=== PATIENT | male | born 1990 | race Two or more races ===

== ENCOUNTER 2019-05-19 22:59 | Emergency (ER) | payer OTHER ==
[~2019-05-19] VITALS: Ht 188 cm; Wt 97.5 kg
[2019-05-20] MEDS ORDERED: fentaNYL CITRATE 100 MCG/2 ML VL IV ONE (01:30)
[2019-05-20] MEDS ORDERED: KETOROLAC TROMETH 15 mg/ml 1ML VL IV ONE (01:30)
[2019-05-20 01:58] VITALS: BP 136/81
== END 2019-05-20 02:02 ==
LOC: EEVIPCON 23:02 → ER 23:02
DX: S43.492A Other sprain of left shoulder joint, initial encounter (principal); X58.XXXA Exposure to other specified factors, initial encounter; Y93.B9 Activity, other involving muscle strengthening exercises; Y92.89 Other specified places as the place of occurrence of the external cause; Y99.8 Other external cause status
CPT/HCPCS: 73030; 96374; 96375; 99285; J1885; J3010

== ENCOUNTER 2019-10-28 00:39 | Emergency (ER) | payer OTHER ==
[~2019-10-28] VITALS: Ht 188 cm; Wt 97.5 kg
[2019-10-28 01:58] VITALS: BP 116/72
[2019-10-28] MEDS ORDERED: ACETAMINOPHEN 325 MG TAB PO ONE (02:30)
== END 2019-10-28 02:26 | disposition home or self-care (01) ==
LOC: ER 00:39
DX: M25.512 Pain in left shoulder (principal); G89.29 Other chronic pain; F17.210 Nicotine dependence, cigarettes, uncomplicated
CPT/HCPCS: 73030

== ENCOUNTER 2020-02-02 14:46 | Emergency (ER) | payer OTHER ==
[~2020-02-02] VITALS: Ht 188 cm; Wt 97.5 kg
[2020-02-02 15:10] VITALS: BP 112/73
[2020-02-02] MEDS ORDERED: HYDROcodone-ACET 10/325MG TAB PO ONE (16:15)
[2020-02-02] MEDS ORDERED: CLOPIDOGREL BISULFATE 75 MG TAB ONE (22:25)
[2020-02-02] MEDS ORDERED: MORPHINE SULF INJ 2 MG/ML SYRINGE 1ML ONE (22:25)
[2020-02-02] MEDS ORDERED: HEPARIN SODIUM (PORCINE) 5000 UNITS/ML 1ML VIAL ONE ×2 (22:25→22:46)
[2020-02-02] MEDS ORDERED: LISINOPRIL 20 MG TAB ONE (22:25)
[2020-02-02] MEDS ORDERED: ONDANSETRON HCL 4 MG/2 ML VIAL ONE (22:25)
[2020-02-02] MEDS ORDERED: ATORVASTATIN 20 MG TAB ONE (22:29)
[2020-02-02] MEDS ORDERED: ANGIOMAX 250 MG VIAL IV ONE (22:46)
[2020-02-02] MEDS ORDERED: MIDAZOLAM HCL 1MG/1ML-2 ML VIAL ONE (22:47)
[2020-02-02] MEDS ORDERED: fentaNYL CITRATE 100 MCG/2 ML VL ONE (22:47)
[2020-02-02] MEDS ORDERED: SODIUM CHL 0.9% 50 ML ONE (22:47)
== END 2020-02-02 17:26 | disposition home or self-care (01) ==
LOC: EEVIPCON 14:46 → ER 14:46
DX: M25.512 Pain in left shoulder (principal); F17.210 Nicotine dependence, cigarettes, uncomplicated; X58.XXXA Exposure to other specified factors, initial encounter; Y93.89 Activity, other specified; Y92.89 Other specified places as the place of occurrence of the external cause; Y99.8 Other external cause status
CPT/HCPCS: 73030; 99283; J0583; J1644; J2250; J2270; J2405; J3010

== ENCOUNTER 2020-03-27 17:37 | Emergency (ER) | payer OTHER ==
[~2020-03-27] VITALS: Ht 185.4 cm; Wt 95.3 kg
[2020-03-27 18:20] VITALS: BP 134/91
[2020-03-27] MEDS ORDERED: IBUPROFEN 800 MG TAB PO ONE ×2 (19:27→19:30)
== END 2020-03-27 19:31 ==
LOC: ER 17:37 → EEVIPCON 17:37 → ER 19:31
DX: S46.912A Strain of unspecified muscle, fascia and tendon at shoulder and upper arm level, left arm, initial encounter (principal); F17.210 Nicotine dependence, cigarettes, uncomplicated; X58.XXXA Exposure to other specified factors, initial encounter; Y93.89 Activity, other specified; Y92.89 Other specified places as the place of occurrence of the external cause; Y99.8 Other external cause status
CPT/HCPCS: 73030